=== PATIENT | male | born 1990 | race Caucasian/White ===

== ENCOUNTER 2017-02-28 21:34 | Emergency (ER) | payer MEDICAID, OTHER ==
[~2017-02-28] VITALS: Ht 162.6 cm; Wt 86.2 kg
[2017-02-28 21:50] VITALS: BP 119/63
[2017-03-01] MEDS ORDERED: IBUPROFEN 600 MG TAB PO ONE (01:15)
== END 2017-03-01 01:23 | disposition home or self-care (01) ==
LOC: ER 21:40
DX: S63.502A Unspecified sprain of left wrist, initial encounter (principal); X58.XXXA Exposure to other specified factors, initial encounter; Y93.89 Activity, other specified; Y92.89 Other specified places as the place of occurrence of the external cause; Y99.8 Other external cause status
CPT/HCPCS: 73110